=== PATIENT | male | born 1950 | race Caucasian/White ===

== ENCOUNTER → 2018-11-21 | Outpatient (REF) | payer MEDICARE, OTHER | LOC: M LAB REF 14:47 | PROVIDERS: ATTEND Internal Medicine Gastroenterology | DX: R19.4 Change in bowel habit (principal) ==

== ENCOUNTER 2019-01-23 08:39 | Day surgery (SDC) | payer MEDICARE, OTHER ==
[~2019-01-23] VITALS: Ht 172.7 cm; Wt 132.4 kg
[2019-01-23] MEDS: NS 1,000 ML IV ONE (06:00)
[~2019-01-23 08:39] MED LIST: ASPI325T57 PO; ATOR40TA75 PO; COLE1TAB PO; ENAL20TA PO; FURO40TA2 PO; GLIP10TA PO; LOPR1TAB6 PO; MAPA500C PO; METF10004 PO; NEUR300C PO; NEUR600T PO; NO ITAB PO; ONGL1TAB9 PO; PIOG1TAB55 PO; RABE1TAB PO; ROPI0.5T PO; ROPI1TAB PO
[2019-01-23] MEDS ORDERED: PROPOFOL 200 MG/20 ML VIAL As Ordered ONE ×3 (09:44→11:17)
[2019-01-23] MEDS ORDERED: LIDOCAINE 2% INJ 100 MG/5 ML SDV (FOR ANES.) As Ordered ONE (09:44)
--- NOTE | 2019-01-23 11:22 | ROOR ---
Patient Name: Renny Jang Procedure Date: 01/23/2019 10:42 AM Date of : 1950 Age: 68 Room: [facility] Gender: Male Note Status: Finalized Procedure: Colonoscopy Indications: Change in bowel habits Providers: Christiano CAT MD Referring MD: RAINE ELIZALDE JR, MD Requesting Provider: Medicines: Monitored Anesthesia Care Complications: No immediate complications. Procedure: Pre-Anesthesia Assessment: - The heart rate, respiratory rate, oxygen saturations, blood pressure, adequacy of pulmonary ventilation, and response to care were monitored throughout the procedure. The Colonoscope was introduced through the anus and advanced to the cecum, identified by appendiceal orifice and ileocecal valve. The colonoscopy was performed without difficulty. The patient tolerated the procedure well. The quality of the bowel preparation was good. Findings: The perianal and digital rectal examinations were normal. Three sessile polyps were found in the sigmoid colon and splenic flexure. The polyps were 4 to 5 mm in size. These polyps were removed with a cold snare. Resection and retrieval were complete. Multiple medium-mouthed diverticula were found in the sigmoid colon. Internal hemorrhoids were found during retroflexion. The hemorrhoids were medium-sized. The exam was otherwise without abnormality on direct and retroflexion views. Biopsies for histology were taken with a cold forceps from the entire colon for evaluation of microscopic colitis. Impression: - Three 4 to 5 mm polyps in the sigmoid colon and at the splenic flexure, removed with a cold snare. Resected and retrieved. - Moderate diverticulosis in the sigmoid colon. - Internal hemorrhoids. - The examination was otherwise normal on direct and retroflexion views. - Biopsies were taken with a cold forceps from the entire colon for evaluation of microscopic colitis. Recommendation: - For bloating/diarrhea/change in bowels:--Discontinue colestid, start dicyclomine--script sent to pharmacy. - Telephone endoscopist for pathology results in 2 weeks. - If the pathology report reveals adenomatous tissue, then repeat the colonoscopy for surveillance in 3 - 5 years. Christiano Cat MD Christiano CAT MD 01/23/2019 11:21:49 AM Electronically signed by Christiano CAT MD Number of Addenda: 0 Note Initiated On: 01/23/2019 10:42 AM Estimated Blood Loss: Estimated blood loss: none.
[2019-01-23 11:56] VITALS: BP 171/73
== END 2019-01-23 12:06 | disposition home or self-care (01) ==
LOC: M OPP 08:39
PROVIDERS: ATTEND Internal Medicine Gastroenterology
DX: K63.5 Polyp of colon (principal); K64.8 Other hemorrhoids; K57.30 Diverticulosis of large intestine without perforation or abscess without bleeding; G47.30 Sleep apnea, unspecified; E11.9 Type 2 diabetes mellitus without complications; I25.2 Old myocardial infarction; R19.4 Change in bowel habit; Z79.82 Long term (current) use of aspirin; Z79.899 Other long term (current) drug therapy; Z86.010 Personal history of colon polyps; Z87.891 Personal history of nicotine dependence

== ENCOUNTER → 2021-01-06 | Outpatient (CLI) | payer MEDICARE, OTHER ==
[~2021-01-06] MED LIST changes: +ACET-897 PO; +ASPI81TA26; +CLOP75TA2; -ENAL20TA PO; +ENAL20TA11 PO; +LOSA25TA14; -RABE1TAB PO; +RABE1TAB4 PO; -ROPI0.5T PO; +ROPI0.5T3 PO; -ROPI1TAB PO; +ROPI1TAB3 PO
== END ==
LOC: M LABSMTC 09:30
PROVIDERS: ATTEND Anesthesiology
DX: Z20.828 Contact with and (suspected) exposure to other viral communicable diseases (principal); Z11.59 Encounter for screening for other viral diseases

== ENCOUNTER 2021-01-11 13:31 | Day surgery (SDC) | payer MEDICARE, OTHER ==
[~2021-01-11] VITALS: Ht 175.3 cm; Wt 141.5 kg
[2021-01-11] MEDS: LR 1,000 ML IV ONE ×2 (07:15→14:22)
[~2021-01-11 13:31] MED LIST changes: +ceFAZolin SOD 1 GM in D5W MINI-BAG PLUS 50 ML IV ONE; +ceFAZolin SOD 2 GM in IV 1 EA IV ONE
[2021-01-11] MEDS ORDERED: LIDOCAINE 1% SDV 30ML VIAL As Ordered ONE (14:05)
[2021-01-11] MEDS ORDERED: LEVALBUTEROL 1.25 MG/0.5 ML CONCENTRATE NEB As Ordered ONE (14:15)
[2021-01-11] MEDS ORDERED: METOPROLOL TART 25 MG TABLET As Ordered ONE (14:16)
[2021-01-11] MEDS ORDERED: MIDAZOLAM INJ 2MG/2ML VIAL (J2250 PER 1MG) As Ordered ONE (14:23)
[2021-01-11] MEDS ORDERED: propofoL 500 MG/50 ML VIAL As Ordered ONE (14:23)
[2021-01-11] MEDS ORDERED: fentaNYL 100 MCG/2 ML INJECTION (J3010) As Ordered ONE (14:24)
[2021-01-11] MEDS ORDERED: LIDOCAINE 2% 100MG/5ML SDV (FOR ANES.) As Ordered ONE (14:26)
[2021-01-11] MEDS ORDERED: METOPROLOL TART 50 MG TAB PO ONE (14:35)
[2021-01-11] MEDS ORDERED: LEVALBUTEROL 1.25 MG/0.5 ML CONCENTRATE NEB NEB ONE (14:35)
[2021-01-11 14:39] VITALS: BP 155/91
[2021-01-11] MEDS ORDERED: METOPROLOL TART 50 MG TAB PO SCH (15:20)
[2021-01-11] MEDS ORDERED: LEVALBUTEROL 1.25 MG/0.5 ML CONCENTRATE NEB NEB SCH (15:20)
[2021-01-11] MEDS ORDERED: fentaNYL 100 MCG/2 ML INJECTION (J3010) IV PRN (16:35)
[2021-01-11] MEDS ORDERED: ONDANSETRON 4MG/2ML VIAL IV PRN (16:35)
[2021-01-11] MEDS ORDERED: LR 1,000 ML IV SCH (16:35)
[2021-01-11 16:53] LABS: ABG BASE EXCESS -4.8 (-2.0-2.0); ABG HCO3 18.1 MEQ/L (22.0-26.0); ABG O2 SATURATION 90.1 % (95.0-99.0); ABG PARTIAL PRESSURE CO2 27.2 mmHg (35.0-45.0); ABG PARTIAL PRESSURE O2 58.4 mmHg (75.0-100.0); ABG STANDARD HCO3 20.3 MEQ/L (22.0-26.0); ABG TOTAL CO2 18.9 MEQ/L (23.0-31.0); ABG pH (ARTERIAL) 7.441 UNITS (7.350-7.450)
--- NOTE | 2021-01-11 17:05 | REP ---
INDICATION: S/P LOOP RECORDER IMPLANTATION. COMPARISON: No comparison chest x-ray. TECHNIQUE: Portable upright AP chest radiograph. FINDINGS: Patient is status post prior median sternotomy. A loop recorder is seen at the left base. Mediastinal clips are noted. The heart is enlarged mildly. Pulmonary vasculature is not increased. Pleural angles are sharp. There are old healed rib fractures on the right posteriorly. IMPRESSION: No active disease. Prior sternotomy and old healed right-sided rib fractures. Loop recorder. <Electronically signed by Osiel Triana > 01/11/21 [id number]
[2021-01-11 17:43] VITALS: BP 101/58
--- NOTE | 2021-01-12 10:11 | RO ---
OPERATIVE NOTE DATE OF OPERATION: 01/11/2021 PREPROCEDURE DIAGNOSIS: Cryptogenic stroke. POSTPROCEDURE DIAGNOSIS: Cryptogenic stroke. FINDINGS: Cryptogenic stroke. PROCEDURE PERFORMED: Implantation of a subcutaneous cardiac rhythm monitor ([employer]iotronik). SURGEON: Christiano Sewell MD. SMASH PIECER: None. ANESTHESIA: Lidocaine 1% local/monitored anesthetic care. SPECIMENS: None. ESTIMATED BLOOD LOSS: Less than 3 mL. No blood products replaced. DRAINS: None. COMPLICATIONS: None. PROCEDURE DESCRIPTION: Patient was prepped and draped over the left anterior chest and sternum. Lidocaine 1% was used for local anesthetic (total of 10 mL). An incision was made with the blade that came with the insertion kit at approximately the left third interspace about 1 inch lateral to the left parasternal border. The guide on the insertion tool was then placed into the incision and advanced in the subcutaneous tissue parallel to the anterior chest wall aiming towards the left nipple. Once the guide was fully placed, the insertion tool was unlocked. The blue portion of the insertion tool was removed while keeping the white portion in place. Next, the insertion tool was removed leaving the loop recorder in situ. The initial R wave amplitude measured 0.55 to 0.64 millivolts. The incision was then approximated using a 4-0 Biosyn suture to approximate the incision line using a continuous subcuticular stitch with the free ends protruding from the ends of the incision by 1 cm on both sides of the incision line. Next, 3 layers of Dermabond was applied over the incision. The Biosyn suture was then pulled through the incision and removed entirely. The subcutaneous cardiac rhythm monitor implanted was a Capriza Biomonitor IIIm. It has reference number [id number] and serial number [id number].
== END 2021-01-11 18:30 | disposition home or self-care (01) ==
LOC: M SDC 13:31
PROVIDERS: ATTEND Internal Medicine Cardiovascular Disease
DX: I63.9 Cerebral infarction, unspecified (principal); I25.10 Atherosclerotic heart disease of native coronary artery without angina pectoris; I10 Essential (primary) hypertension; I25.2 Old myocardial infarction; Z95.1 Presence of aortocoronary bypass graft; E11.9 Type 2 diabetes mellitus without complications; E78.00 Pure hypercholesterolemia, unspecified; R06.00 Dyspnea, unspecified; R06.83 Snoring; E66.01 Morbid (severe) obesity due to excess calories; K21.9 Gastro-esophageal reflux disease without esophagitis; Z79.82 Long term (current) use of aspirin; Z79.84 Long term (current) use of oral hypoglycemic drugs; Z79.899 Other long term (current) drug therapy; Z87.891 Personal history of nicotine dependence; R94.31 Abnormal electrocardiogram [ECG] [EKG]
CPT/HCPCS: 33285; 71045; 82803; C1764; J0690; J2250; J3010